=== PATIENT | female | born 2000 | race African-American/Black ===

== ENCOUNTER 2021-02-14 11:54 | Emergency (ER) | payer OTHER ==
[~2021-02-14] VITALS: Ht 162.6 cm; Wt 59.1 kg
[2021-02-14] MEDS ORDERED: TRAZ-252 PO (12:10)
[2021-02-14] MEDS ORDERED: ZOLO25TA PO (12:10)
[2021-02-14] MEDS ORDERED: METOCLOPRAMIDE INJ 10MG/2ML VIAL (J2765 PER 1) IV ONE (12:30)
[2021-02-14] MEDS ORDERED: NS 1,000 ML IV ONE (12:30)
[2021-02-14] MEDS ORDERED: KETOROLAC 30 MG/ML 1ML VIAL IV ONE (13:05)
[2021-02-14 13:18] LABS: BASO % 0.4 % (0.0-1.0); EOS % 0.4 % (0.0-3.0); HEMATOCRIT 38.8 % (36.0-47.0); HEMOGLOBIN 13.2 g/dl (12.0-15.5); LYMPH # 1.4 10^3/uL (1.5-5.0); LYMPH % 26.5 % (24.0-44.0); MEAN CORPUSCULAR HEMOGLOBIN 29.9 pg (27.0-33.0); MEAN CORPUSCULAR VOLUME 87.8 fl (80.0-96.0); MONO # 0.3 10^3/uL (0.0-0.8); MONO % 6.1 % (2.0-8.0); NEUTROPHILS # 3.5 10^3/uL (1.5-8.5); NEUTROPHILS % 66.4 % (36.0-66.0); PLATELET COUNT, AUTOMATED 250 10^3/uL (150-450); RED BLOOD COUNT 4.42 10^6/uL (4.00-5.40); WHITE BLOOD COUNT 5.2 10^3/uL (4.0-10.0)
[2021-02-14 14:04] LABS: ALBUMIN 3.6 GM/DL (3.2-5.2); ALT/SGPT 22 U/L (12-78); BILIRUBIN,DIRECT < 0.1 MG/DL (0.0-0.2); BILIRUBIN,TOTAL 0.4 MG/DL (0.2-1.0); BLOOD UREA NITROGEN 13 MG/DL (7-18); CALCIUM LEVEL 9.5 MG/DL (8.5-10.1); CARBON DIOXIDE LEVEL 29 MEQ/L (21-32); CHLORIDE LEVEL 106 MEQ/L (98-107); ETHYL ALCOHOL (ETHANOL) < 0.003 % (0.000-0.010); GLOMERULAR FILTRATION RATE > 60.0 (>60); GLUCOSE, FASTING 79 MG/DL (70-100); POTASSIUM SERUM 4.7 MEQ/L (3.5-5.1); SODIUM LEVEL 139 MEQ/L (136-145); THYROID STIMULATING HORMONE 0.561 uIU/ML (0.358-3.740); TOTAL PROTEIN 6.8 GM/DL (6.4-8.2)
[2021-02-14] MEDS ORDERED: ONDA4TAB6 PO (14:51)
[2021-02-14 15:31] VITALS: BP 100/60
--- NOTE | 2021-02-14 19:53 | ECGEPIP ---
[facility] - ED Test Date: 2021-02-14 Pat Name: QUE LAM Department: Room: - Gender: Female Field Human Resources Manager: : 2000 Requested By: ELIAS SCRUGGS Order Number: [id number] Reading MD: Elias Spencer Measurements Intervals [place] Rate: 80 P: 46 MT: 146 QRS: 11 QRSD: 82 T: 21 QT: 388 QTc: 447 Interpretive Statements Normal sinus rhythm with sinus arrhythmia Low voltage QRS Comparison tracing not on file Electronically Signed on 02-14-2021 19:53:49 EDT by Elias Spencer
== END 2021-02-14 16:30 | disposition home or self-care (01) ==
LOC: M ED 11:54
DX: G43.909 Migraine, unspecified, not intractable, without status migrainosus (principal); R55 Syncope and collapse; R11.2 Nausea with vomiting, unspecified; F41.9 Anxiety disorder, unspecified; F32.9 Major depressive disorder, single episode, unspecified
CPT/HCPCS: 80048; 80076; 82077; 83735; 84443; 84702; 85025; 93005; 93041; 94760; 96361; 96374; 96375; 99285; J1885; J2765

== ENCOUNTER 2021-04-09 20:24 | Emergency (ER) | payer OTHER ==
[~2021-04-09] VITALS: Ht 162.6 cm; Wt 59.6 kg
[~2021-04-09 20:24] MED LIST: ONDA4TAB6 PO; TRAZ-252 PO; ZOLO25TA PO
[2021-04-09 20:25] VITALS: BP 114/67
== END 2021-04-09 23:05 | disposition left against medical advice (07) ==
LOC: M ED 20:24
DX: Z53.21 Procedure and treatment not carried out due to patient leaving prior to being seen by health care provider (principal)

== ENCOUNTER 2021-10-01 06:54 | Day surgery (SDC) | payer OTHER ==
[~2021-10-01] VITALS: Ht 162.6 cm; Wt 60.2 kg
[~2021-10-01 06:54] MED LIST changes: +HEPARIN SOD (PORCINE) 5000UNITS/ML 1ML VIAL/SYRINGE SQ ONE; +LR 1,000 ML IV ONE; +NS 1,000 ML IV SCH; +ceFAZolin SOD 2 GM in IV 1 EA IV ONE
[2021-10-01] MEDS ORDERED: ONDANSETRON 4MG/2ML VIAL As Ordered ONE (07:34)
[2021-10-01] MEDS ORDERED: dexameTHASONE 4 MG/ML 1ML VIAL (J1100 PER 1MG) As Ordered ONE (07:34)
[2021-10-01] MEDS ORDERED: LIDOCAINE 2% 100MG/5ML SDV (FOR ANES.) As Ordered ONE (07:34)
[2021-10-01] MEDS ORDERED: fentaNYL 250 MCG/5 ML INJECTION (J3010) As Ordered ONE (07:34)
[2021-10-01] MEDS ORDERED: propofoL 200 MG/20 ML VIAL As Ordered ONE (07:34)
[2021-10-01] MEDS ORDERED: MIDAZOLAM INJ 2MG/2ML VIAL (J2250 PER 1MG) As Ordered ONE (07:34)
[2021-10-01] MEDS ORDERED: METOCLOPRAMIDE INJ 10MG/2ML VIAL (J2765 PER 1) As Ordered ONE (07:38)
[2021-10-01] MEDS ORDERED: SEVOFLURANE INHAL SOLN 250 ML BTL As Ordered ONE (07:44)
[2021-10-01] MEDS ORDERED: BUPIVACAINE HCL 0.25% 30ML VIAL As Ordered ONE (07:48)
[2021-10-01] MEDS ORDERED: LIDOCAINE 1% SDV 30ML VIAL As Ordered ONE (07:48)
[2021-10-01] MEDS ORDERED: LIDOCAINE 5% OINT 30GM TUBE As Ordered ONE (07:51)
[2021-10-01] MEDS ORDERED: PHENYLephrine 500MCG 5ML (100MCG/ML) SYRINGE As Ordered ONE (08:50)
[2021-10-01] MEDS ORDERED: ACETAMINOPHEN 1000MG 100ML IV BTL (OFIRMEV) (J0131 PER 10MG) As Ordered ONE (09:04)
[2021-10-01] MEDS ORDERED: ePHEDrine SULFATE 25 MG/5 ML(5MG/ML) SYRINGE As Ordered ONE (09:41)
[2021-10-01] MEDS ORDERED: ULTR50TA8 PO (10:36)
[2021-10-01] MEDS ORDERED: ONDANSETRON 4MG/2ML VIAL IV PRN (11:10)
[2021-10-01] MEDS ORDERED: fentaNYL 100 MCG/2 ML INJECTION (J3010) IV PRN (11:10)
[2021-10-01] MEDS ORDERED: oxyCODONE 5MG TAB PO PRN (11:10)
[2021-10-01] MEDS ORDERED: HYDROMORPHONE HCL 0.5 MG/ 0.5 ML SYRINGE (J1170 PER 1) IV PRN (11:10)
[2021-10-01] MEDS ORDERED: LR 1,000 ML IV SCH (11:10)
[2021-10-01 12:35] VITALS: BP 119/71
== END 2021-10-01 12:45 | disposition home or self-care (01) ==
LOC: M SDC 06:54
PROVIDERS: ATTEND Surgery
DX: D24.2 Benign neoplasm of left breast (principal); K42.9 Umbilical hernia without obstruction or gangrene; F41.9 Anxiety disorder, unspecified; F32.9 Major depressive disorder, single episode, unspecified
CPT/HCPCS: 19120; 36415; 81025; 86850; 86900; 86901; 88305; J0131; J0690; J1100; J1644; J2250; J2370; J2405; J2765; J3010

== ENCOUNTER 2021-10-15 20:12 | Emergency (ER) | payer OTHER ==
[~2021-10-15] VITALS: Ht 160 cm; Wt 58.2 kg
[2021-10-15 20:12] VITALS: BP 111/69
[~2021-10-15 20:12] MED LIST changes: -HEPARIN SOD (PORCINE) 5000UNITS/ML 1ML VIAL/SYRINGE SQ ONE; -LR 1,000 ML IV ONE; -NS 1,000 ML IV SCH; +ULTR50TA8 PO; -ceFAZolin SOD 2 GM in IV 1 EA IV ONE
== END 2021-10-16 00:34 | disposition left against medical advice (07) ==
LOC: M ED 20:12
DX: Z53.21 Procedure and treatment not carried out due to patient leaving prior to being seen by health care provider (principal)

== ENCOUNTER 2021-11-23 20:31 | Emergency (ER) | payer OTHER ==
[~2021-11-23] VITALS: Ht 157.5 cm; Wt 59.1 kg
[2021-11-23 21:34] LABS: BASO % 0.8 % (0.0-1.0); EOS % 0.6 % (0.0-3.0); HEMATOCRIT 37.6 % (36.0-47.0); HEMOGLOBIN 13.1 g/dl (12.0-15.5); LYMPH # 2.6 10^3/uL (1.5-5.0); LYMPH % 49.8 % (24.0-44.0); MEAN CORPUSCULAR HEMOGLOBIN 30.3 pg (27.0-33.0); MEAN CORPUSCULAR HGB CONC 34.8 g/dl (32.0-36.5); MEAN CORPUSCULAR VOLUME 86.8 fl (80.0-96.0); MONO # 0.5 10^3/uL (0.0-0.8); MONO % 8.9 % (2.0-8.0); NEUTROPHILS # 2.1 10^3/uL (1.5-8.5); NEUTROPHILS % 39.7 % (36.0-66.0); PLATELET COUNT, AUTOMATED 244 10^3/uL (150-450); RED BLOOD COUNT 4.33 10^6/uL (4.00-5.40); WHITE BLOOD COUNT 5.3 10^3/uL (4.0-10.0)
[2021-11-23 21:52] LABS: ERYTHROCYTE SEDIMENTATION RATE 6 mm/hr (0-20)
[2021-11-23] MEDS ORDERED: IBUPROFEN 600MG TAB PO ONE (22:25)
[2021-11-23 23:21] VITALS: BP 120/70
[2021-11-26 15:09] LABS: ANTINUCLEAR ANTIBODIES DIRECT Negative (Negative)
== END 2021-11-23 23:21 | disposition home or self-care (01) ==
LOC: M ED 20:31
DX: T33.522A Superficial frostbite of left hand, initial encounter (principal)